=== PATIENT | female | born 2000 | race Caucasian/White ===

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

== ENCOUNTER 2019-06-08 17:36 | Emergency (ER) | payer SELFPAY ==
[~2019-06-08] VITALS: Ht 154.9 cm; Wt 52.2 kg
[2019-06-08] MEDS ORDERED: PRENATAL TABLE1 EAC2 PO (18:12)
[2019-06-08 18:22] LABS: COLOR YELLOW (YELLOW)
[2019-06-08 18:23] LABS: BILIRUBIN NEGATIVE (NEGATIVE); BLOOD NEGATIVE (NEGATIVE); CLARITY CLOUDY (CLEAR); GLUCOSE NEGATIVE (NEGATIVE); KETONE NEGATIVE (NEGATIVE); LEUKO ESTERASE NEGATIVE (NEGATIVE); NITRITE NEGATIVE (NEGATIVE); UROBILINOGEN 0.2 E.U./dl (0.2-1.0)
[2019-06-08 18:24] LABS: BACTERIA 2+; EPITHELIAL CELLS TNTC; MUCOUS 1+
[2019-06-08] MEDS ORDERED: CEPHALEXIN500 M1 PO (18:34)
== END 2019-06-08 19:20 | disposition home or self-care (01) ==
LOC: ED 17:36
PROVIDERS: Nurse Practitioner Family
DX: O23.91 Unspecified genitourinary tract infection in pregnancy, first trimester (principal); Z3A.01 Less than 8 weeks gestation of pregnancy

== ENCOUNTER → 2019-07-14 | Outpatient (CLI) | payer OTHER ==
[~2019-07-14] MED LIST changes: +CEPHALEXIN500 M1 PO; +PRENATAL TABLE1 EAC2 PO
== END | disposition home or self-care (01) ==
LOC: US 11:03
DX: O34.81 Maternal care for other abnormalities of pelvic organs, first trimester (principal); N83.12 Corpus luteum cyst of left ovary; Z3A.09 9 weeks gestation of pregnancy

== ENCOUNTER → 2019-09-29 | Outpatient (CLI) | payer OTHER | END | disposition home or self-care (01) | LOC: US 13:00 | DX: Z34.02 Encounter for supervision of normal first pregnancy, second trimester (principal); Z3A.20 20 weeks gestation of pregnancy ==

== ENCOUNTER 2019-11-17 21:39 | Emergency (ER) | payer OTHER ==
[~2019-11-17] VITALS: Ht 154.9 cm; Wt 56.2 kg
[2019-11-17] MEDS ORDERED: CLARITIN5 MG/5 ML PO (22:40)
[2019-11-17] MEDS ORDERED: ROBITUSSIN5 ML PO (22:40)
== END 2019-11-17 23:59 | disposition home or self-care (01) ==
LOC: ED 21:39
DX: J00 Acute nasopharyngitis [common cold] (principal); F31.9 Bipolar disorder, unspecified; Z79.899 Other long term (current) drug therapy

== ENCOUNTER 2020-01-06 15:40 | Emergency (ER) | payer OTHER ==
[~2020-01-06] VITALS: Wt 60.8 kg
[~2020-01-06 15:40] MED LIST changes: +CLARITIN5 MG/5 ML PO; +ROBITUSSIN5 ML PO
[2020-01-06] MEDS ORDERED: ANTIFUNGAL113 GM T (18:01)
[2020-01-06 18:32] LABS: BILIRUBIN 1+ (Negative); BLOOD Negative (Negative); CLARITY Cloudy (Clear); COLOR Dark Yellow (Yellow); GLUCOSE Negative (Negative); KETONE 4+ (Negative); LEUKO ESTERASE 1+ (Negative); NITRITE Negative (Negative); PH 5.5 (4.5-8.0); SPECIFIC GRAVITY 1.025 (1.001-1.030)
[2020-01-06 18:41] LABS: BACTERIA 3+; EPITHELIAL CELLS 16-20
[2020-01-06] MEDS ORDERED: KEFLEX500 M1 PO (18:50)
== END 2020-01-06 21:00 ==
LOC: ED 15:40
PROVIDERS: Physician Assistant
DX: O98.813 Other maternal infectious and parasitic diseases complicating pregnancy, third trimester (principal); O26.893 Other specified pregnancy related conditions, third trimester; R82.71 Bacteriuria; Z3A.34 34 weeks gestation of pregnancy; Z79.899 Other long term (current) drug therapy

== ENCOUNTER → 2020-03-18 | Outpatient (CLI) | payer OTHER ==
[~2020-03-18] MED LIST changes: +ANTIFUNGAL113 GM T; +KEFLEX500 M1 PO
== END | disposition home or self-care (01) ==
LOC: COVID19 12:24
PROVIDERS: ATTEND Internal Medicine
DX: Z11.52 Encounter for screening for COVID-19 (principal)

== ENCOUNTER 2020-08-22 18:32 | Emergency (ER) | payer OTHER ==
[~2020-08-22] VITALS: Ht 154.9 cm; Wt 51.3 kg
== END 2020-08-22 19:57 | disposition left against medical advice (07) ==
LOC: ED 18:32
DX: J34.89 Other specified disorders of nose and nasal sinuses (principal); H92.02 Otalgia, left ear; Z53.21 Procedure and treatment not carried out due to patient leaving prior to being seen by health care provider

== ENCOUNTER 2021-05-21 12:24 | Emergency (ER) | payer OTHER ==
[~2021-05-21] VITALS: Wt 59.0 kg
[2021-05-21 12:50] LABS: BILIRUBIN Negative (Negative); BLOOD 1+ (Negative); CLARITY Clear (Clear); COLOR Yellow (Yellow); GLUCOSE Negative (Negative); KETONE Negative (Negative); LEUKO ESTERASE 1+ (Negative); NITRITE Negative (Negative); PH 6.5 (4.5-8.0); SPECIFIC GRAVITY 1.025 (1.001-1.030); UROBILINOGEN 0.2 E.U./dl (0.0-1.0)
[2021-05-21 13:02] LABS: BACTERIA 3+; EPITHELIAL CELLS 16-20; MUCOUS 2+
[2021-05-21] MEDS ORDERED: CEPHALEXIN500 M1 PO (13:34)
== END 2021-05-21 13:40 | disposition home or self-care (01) ==
LOC: ED 12:24
PROVIDERS: Nurse Practitioner Family
DX: N39.0 Urinary tract infection, site not specified (principal); Z11.3 Encounter for screening for infections with a predominantly sexual mode of transmission; Z79.899 Other long term (current) drug therapy

== ENCOUNTER 2021-12-19 14:25 | Emergency (ER) | payer OTHER ==
[~2021-12-19] VITALS: Wt 52.2 kg
== END 2021-12-19 15:43 | disposition left against medical advice (07) ==
LOC: ED 14:25
DX: H57.12 Ocular pain, left eye (principal); Z53.21 Procedure and treatment not carried out due to patient leaving prior to being seen by health care provider

== ENCOUNTER 2023-05-28 10:15 | Emergency (ER) | payer OTHER ==
[2023-05-28] MEDS ORDERED: BENZOCAINE 20% 11.9 GM GEL T STA (10:45)
[2023-05-28] MEDS ORDERED: Lidocaine Hydrochloride 15 ML UDC PO STA (10:45)
[2023-05-28] MEDS ORDERED: Ketorolac Tromethamine 30 MG/ML VIAL IM ONE (10:45)
[2023-05-28] MEDS ORDERED: PENICILLIN V POTASSIUM 500 MG TAB PO ONE (10:45)
[2023-05-28] MEDS ORDERED: Acetaminophen/Hydrocodone 5 MG/325 MG TABLET PO ONE (10:45)
[2023-05-28] MEDS ORDERED: Ondansetron Hydrochloride 4 MG TAB SL ONE (10:45)
[2023-05-28] MEDS ORDERED: Motrin,Rufen800 MG PO (10:46)
[2023-05-28] MEDS ORDERED: PENICILLIN VK500 MG PO (10:47)
== END 2023-05-28 11:07 | disposition home or self-care (01) ==
LOC: ED 10:15
DX: K04.7 Periapical abscess without sinus (principal); K02.9 Dental caries, unspecified; R11.0 Nausea; F31.9 Bipolar disorder, unspecified; F90.9 Attention-deficit hyperactivity disorder, unspecified type

== ENCOUNTER 2023-08-08 13:35 | Emergency (ER) | payer OTHER ==
[~2023-08-08] VITALS: Ht 154.9 cm; Wt 49.9 kg
[~2023-08-08 13:35] MED LIST changes: +Motrin,Rufen800 MG PO; +PENICILLIN VK500 MG PO
[2023-08-08] MEDS ORDERED: IBUPROFEN 600 MG TAB PO ONE (15:25)
== END 2023-08-08 15:35 | disposition home or self-care (01) ==
LOC: ED 13:35
DX: S06.0X0A Concussion without loss of consciousness, initial encounter (principal); S00.83XA Contusion of other part of head, initial encounter; R11.0 Nausea; F17.200 Nicotine dependence, unspecified, uncomplicated; F31.9 Bipolar disorder, unspecified; F90.9 Attention-deficit hyperactivity disorder, unspecified type; Z98.890 Other specified postprocedural states; W50.0XXA Accidental hit or strike by another person, initial encounter; Y93.89 Activity, other specified; Y92.89 Other specified places as the place of occurrence of the external cause; Y99.8 Other external cause status

== ENCOUNTER 2023-12-29 14:43 | Emergency (ER) | payer OTHER ==
[~2023-12-29] VITALS: Ht 157 cm; Wt 52.2 kg
[2023-12-29] MEDS ORDERED: SODIUM CHLORIDE 0.9% 500 ML IV ONE (15:20)
[2023-12-29] MEDS ORDERED: Ondansetron Hydrochloride 4 MG/2 ML VIAL IV ONE (15:20)
[2023-12-29 15:35] LABS: BASO # 0.1 10*3/uL (0.0-0.1); BASO % 0.4 % (0.0-1.0); EOS % 0.2 % (1.0-4.0); HEMATOCRIT 41.2 % (37.0-47.0); MEAN CELL VOLUME 90.5 fl (81.0-99.0); MEAN CORPUSCULAR HGB 29.5 pg (27.0-31.0); MEAN CORPUSCULAR HGB CONC 32.5 g/dl (33.0-37.0); MEAN PLATELET VOLUME 11.8 fl (9.6-12.3); MONO # 0.7 10*3/uL (0.1-1.0); MONO % 4.2 % (3.0-9.0); NEUT # 14.4 10*3/uL (2.3-7.9); NEUT % 85.5 % (47.0-73.0); PLATELET COUNT AUTOMATED 226 10*3/uL (130-400); RED BLOOD COUNT 4.55 10*6/uL (4.10-5.10); RED CELL DISTRI WIDTH 12.9 % (0-14.5); WHITE BLOOD COUNT 16.8 10*3/uL (4.8-10.8)
[2023-12-29 15:45] LABS: BILIRUBIN Negative (Negative); BLOOD Negative (Negative); CLARITY Clear (Clear); COLOR Yellow (Yellow); GLUCOSE Negative (Negative); KETONE Trace (Negative); LEUKO ESTERASE Negative (Negative); NITRITE Negative (Negative); SPECIFIC GRAVITY >= 1.030 (1.001-1.030); UROBILINOGEN 0.2 E.U./dl (0.0-1.0)
[2023-12-29 15:53] LABS: MUCOUS TRACE
[2023-12-29 15:58] LABS: ALKALINE PHOSPHATASE 67 U/L (46-116); BUN 11 mg/dl (9-23); CHLORIDE 109 mmol/L (98-107); LIPASE 28 U/L (12-53); POTASSIUM 3.7 mmol/L (3.4-5.1); SGPT/ALT 12 U/L (5-49); TOTAL PROTEIN 7.7 gm/dL (6.0-8.0)
[2023-12-29] MEDS ORDERED: Ondansetron4 MG PO (16:13)
== END 2023-12-29 16:19 | disposition home or self-care (01) ==
LOC: ED 14:43
PROVIDERS: Nurse Practitioner Family
DX: A08.4 Viral intestinal infection, unspecified (principal); Z20.822 Contact with and (suspected) exposure to COVID-19; D72.829 Elevated white blood cell count, unspecified; F31.9 Bipolar disorder, unspecified; E87.6 Hypokalemia; F90.9 Attention-deficit hyperactivity disorder, unspecified type; F17.200 Nicotine dependence, unspecified, uncomplicated; Z98.890 Other specified postprocedural states

== ENCOUNTER 2024-08-27 14:25 | Emergency (ER) | payer OTHER ==
[~2024-08-27] VITALS: Ht 157.4 cm; Wt 52.2 kg
[~2024-08-27 14:25] MED LIST changes: +Ondansetron4 MG PO
[2024-08-27] MEDS ORDERED: SODIUM CHLORIDE 0.9% 1,000 ML IV ONE (15:20)
[2024-08-27 15:26] LABS: BASO # 0.1 10*3/uL (0.0-0.1); BASO % 0.8 % (0.0-1.0); EOS # 0.0 10*3/uL (0.0-0.4); EOS % 0.5 % (1.0-4.0); MEAN CELL VOLUME 89.0 fl (81.0-99.0); MEAN CORPUSCULAR HGB 29.3 pg (27.0-31.0); MEAN PLATELET VOLUME 10.9 fl (9.6-12.3); MONO # 0.6 10*3/uL (0.1-1.0); MONO % 7.5 % (3.0-9.0); NEUT # 4.1 10*3/uL (2.3-7.9); NEUT % 53.2 % (47.0-73.0); NUCLEATED RED BLOOD CELL 0.0 % (0.0-0.0); NUCLEATED RED BLOOD CELL 0.0 10*3/uL (0.0-0.0); PLATELET COUNT AUTOMATED 191 10*3/uL (130-400); RED CELL DISTRI WIDTH 13.0 % (0-14.5)
[2024-08-27 15:49] LABS: BUN 8 mg/dl (9-23); SGPT/ALT 10 U/L (5-49)
[2024-08-27 15:50] LABS: ETHYL ALCOHOL < 3.0 mg/dl (<3)
[2024-08-27 15:53] LABS: BILIRUBIN Negative (Negative); BLOOD Negative (Negative); CLARITY Cloudy (Clear); COLOR Yellow (Yellow); KETONE Trace (Negative); LEUKO ESTERASE Negative (Negative); NITRITE Negative (Negative); PH 8.0 (4.5-8.0); SPECIFIC GRAVITY 1.025 (1.001-1.030); UROBILINOGEN 1.0 E.U./dl (0.0-1.0)
[2024-08-27 16:03] LABS: URINE AMPHETAMINES Negative (1000ng/ml); URINE BARBITURATES Negative (200ng/ml); URINE BENZODIAZEPINES Negative (200ng/ml); URINE CANNABINOIDS (THC) Positive (50ng/ml); URINE COCAINE Negative (300ng/ml); URINE METHADONE Negative (300ng/ml); URINE OPIATES Negative (300ng/ml); URINE PHENCYCLIDINE Negative (25ng/ml)
[2024-08-27 16:10] LABS: BACTERIA 2+; MUCOUS 2+; RBC 0-2 rbc/hpf (0-2); WBC 0-2 wbc/hpf (0-5)
== END 2024-08-27 17:36 | disposition home or self-care (01) ==
LOC: ED 14:25
PROVIDERS: Emergency Medicine
DX: R42 Dizziness and giddiness (principal); F12.10 Cannabis abuse, uncomplicated; Z98.890 Other specified postprocedural states; Z87.891 Personal history of nicotine dependence

== ENCOUNTER 2024-11-11 14:48 | Emergency (ER) | payer OTHER ==
[~2024-11-11] VITALS: Ht 157.4 cm; Wt 52.2 kg
[2024-11-11] MEDS ORDERED: SODIUM CHLORIDE 0.9% 500 ML IV ONE (15:20)
[2024-11-11 15:31] LABS: BASO # 0.0 10*3/uL (0.0-0.1); BASO % 0.5 % (0.0-1.0); EOS # 0.1 10*3/uL (0.0-0.4); EOS % 1.3 % (1.0-4.0); MEAN CELL VOLUME 88.1 fl (81.0-99.0); MEAN CORPUSCULAR HGB 29.9 pg (27.0-31.0); MEAN PLATELET VOLUME 11.8 fl (9.6-12.3); MONO # 0.7 10*3/uL (0.1-1.0); MONO % 8.4 % (3.0-9.0); NEUT # 4.1 10*3/uL (2.3-7.9); NEUT % 47.1 % (47.0-73.0); NUCLEATED RED BLOOD CELL 0.0 % (0.0-0.0); NUCLEATED RED BLOOD CELL 0.0 10*3/uL (0.0-0.0); PLATELET COUNT AUTOMATED 162 10*3/uL (130-400); RED CELL DISTRI WIDTH 12.9 % (0-14.5)
[2024-11-11 16:01] LABS: BUN 8 mg/dl (9-23)
[2024-11-11 16:48] LABS: BILIRUBIN Negative (Negative); BLOOD 3+ (Negative); CLARITY Cloudy (Clear); COLOR Orange (Yellow); KETONE 2+ (Negative); LEUKO ESTERASE Trace (Negative); NITRITE Negative (Negative); PH 5.5 (4.5-8.0); SPECIFIC GRAVITY 1.025 (1.001-1.030); UROBILINOGEN 1.0 E.U./dl (0.0-1.0)
[2024-11-11 17:02] LABS: BACTERIA 2+; MUCOUS 3+
== END 2024-11-11 17:23 | disposition home or self-care (01) ==
LOC: ED 14:48
PROVIDERS: Emergency Medicine
DX: R55 Syncope and collapse (principal); R20.2 Paresthesia of skin; E11.9 Type 2 diabetes mellitus without complications; F17.210 Nicotine dependence, cigarettes, uncomplicated; Z98.890 Other specified postprocedural states

== ENCOUNTER 2024-12-12 14:24 | Emergency (ER) | payer OTHER ==
[~2024-12-12] VITALS: Ht 154.9 cm; Wt 52.2 kg
[2024-12-12] MEDS ORDERED: VIBRAMYCIN100 MG PO (15:47)
[2024-12-12 16:02] LABS: BILIRUBIN Negative (Negative); BLOOD Negative (Negative); CLARITY Turbid (Clear); COLOR Yellow (Yellow); KETONE Trace (Negative); LEUKO ESTERASE Negative (Negative); NITRITE Negative (Negative); PH 8.0 (4.5-8.0); SPECIFIC GRAVITY 1.025 (1.001-1.030); UROBILINOGEN 1.0 E.U./dl (0.0-1.0)
[2024-12-12 16:15] LABS: BACTERIA 1+; EPITHELIAL CELLS 16-20; WBC 0-2 wbc/hpf (0-5)
[2024-12-12] MEDS ORDERED: Water, Sterile 10 ML VIAL ONE (16:22)
== END 2024-12-12 16:02 | disposition home or self-care (01) ==
LOC: ED 14:24
PROVIDERS: Nurse Practitioner Family
DX: Z20.2 Contact with and (suspected) exposure to infections with a predominantly sexual mode of transmission (principal); F31.9 Bipolar disorder, unspecified; F90.9 Attention-deficit hyperactivity disorder, unspecified type; F17.210 Nicotine dependence, cigarettes, uncomplicated; Z98.890 Other specified postprocedural states